=== PATIENT | male | born 1980 | race Caucasian/White ===

== ENCOUNTER 2018-11-09 16:39 | Inpatient (IN) | payer BC ==
[2018-11-10 00:19] VITALS: BMI 24.3
--- NOTE | 2018-11-10 03:08 | HP ---
CIWA Score Nausea/Vomitin-Mild Nausea/No Vomiting Muscle Tremors: 4-Moderate,w/Arms Extend Anxiety: 3 Agitation: 4-Moderately Restless Paroxysmal Sweats: 1-Minimal Palms Moist Orientation: 0-Oriented Tacttile Disturbances: 0-None Auditory Disturbances: 0-None Visual Disturbances: 0-None Headache: 4-Moderately Severe CIWA-Ar Total Score: 17 - Admission Criteria OAS Guidelines: Admission for Medically Managed Detox: Requires at least one of the followin. CIWA greater than 12 2. Seizures within the past 24 hours 3. Delirium tremens within the past 24 hours 4. Hallucinations within the past 24 hours 5. Acute intervention needed for co occurring medical disorder 6. Acute intervention needed for co occurring psychiatric disorder 7. Severe withdrawal that cannot be handled at a lower level of care (continued vomiting, continued diarrhea, abnormal vital signs) requiring intravenous medication and/or fluids 8. Admission [facility] Chief Complaint: Alcohol withdrawal symptoms, on Methadone Therapy Allergies/Adverse Reactions: Allergies Allergy/AdvReac Type Severity Reaction Status Date / Time No Known Allergies Allergy Verified 11/10/18 00:21 History of Present Illness: 38 years old male with a long history of alcohol dependence is seeking admission to detox. Patient has been in previous detox and reports insignificant period of sobriety. He denies any past medical history and suicidal ideation at this time. Patient is on Methadone 60mg tablet at [facility]. Last day medicated was 11/10/2018. Dose is yet to be verified by the nurse. This is his first admission to [facility] Exam Limitations: No Limitations - Ebola screening Have you traveled outside of the country in the last 21 days: No (N) Have you had contact with anyone from an Ebola affected area: No Do you have a fever: No - Review of Systems Constitutional: Chills, Loss of Appetite, Malaise, Night Sweats, Changes in sleep EENT: reports: No Symptoms Reported, Sinus Pressure Respiratory: reports: No Symptoms reported Cardiac: reports: No Symptoms Reported GI: reports: No Symptoms Reported, Diarrhea (x 2), Poor Appetite, Poor Fluid Intake : reports: No Symptoms Reported Integumentary: reports: Dryness, Flushing Neuro: reports: Tremors Endocrine: reports: No Symptoms Reported Hematology: reports: No Symptoms Reported Psychiatric: reports: Anxious, Depressed Other Systems: Reviewed and Negative Patient History - Patient Medical History Hx Anemia: No Hx Asthma: No Hx Chronic Obstructive Pulmonary Disease (COPD): No Hx Cancer: No Hx Cardiac Disorders: No Hx Congestive Heart Failure: No Hx Hypertension: No Hx Hypercholesterolemia: No Hx Pacemaker: No Hx Seizures: No Hx Diabetes: No Hx Gastrointestinal Disorders: No Hx Liver Disease: No Hx Genitourinary Disorders: No Hx Sexually Transmitted Disorders: No Hx Renal Disease (ESRD): No Hx Thyroid Disease: No Hx Human Immunodeficiency Virus (HIV): No Hx Hepatitis C: No Hx Depression: No Hx Suicide Attempt: No (Denies suicidal ideaation at this time) Hx Bipolar Disorder: No Hx Schizophrenia: No - Patient Surgical History Past Surgical History: No Hx Neurologic Surgery: No Hx Cataract Extraction: No Hx Cardiac Surgery: No Hx Lung Surgery: No Hx Breast Surgery: No Hx Breast Biopsy: No Hx Abdominal Surgery: No Hx Appendectomy: No Hx Cholecystectomy: No Hx Genitourinary Surgery: No Hx Section: No Hx Orthopedic Surgery: No Hx Hysterectomy: No Anesthesia Reaction: No - PPD History Previous Implant?: Yes Documented Results: Negative w/proof Implanted On Prior R Admission?: Yes PPD to be Administered?: Yes - Reproductive History Patient is a Female of Child Bearing Age (11 -55 yrs old): No (male) - Smoking Cessation Smoking history: Current every day smoker Have you smoked in the past 12 months: Yes Aproximately how many cigarettes per day: 10 Hx Chewing Tobacco Use: No Initiated information on smoking cessation: Yes 'Breaking Loose' booklet given: 11/10/18 - Substance & Tx. History Hx Alcohol Use: Yes Hx Substance Use: Yes Substance Use Type: Alcohol, Cocaine - Substances abused Cocaine Substance route: Inhalation Frequency: 1-2 times per week Amount used: $50- $100 Age of first use: 17 Date of last use: 11/07/18 Heroin Substance route: Inhalation Frequency: Daily Amount used: 2-3 bags Age of first use: 17 Date of last use: 09/08/18 Alcohol Substance route: Oral Frequency: Daily Amount used: 2-3 24 oz can Age of first use: 13 Date of last use: 11/10/18 Family Disease History - Family Disease History Family History: Denies Admission Physical Exam BHS - Vital Signs Vital Signs: Vital Signs - 24 hr 11/10/18 00:05 Temperature 97.6 F Pulse Rate 68 Respiratory 18 Rate Blood Pressure 124/81 - Physical General Appearance: Yes: Moderate Distress, Tremorous, Sweating, Anxious HEENTM: Yes: EOMI, Normal ENT Inspection, Normal Voice, HEBERT Respiratory: Yes: Lungs Clear, Normal Breath Sounds, No Respiratory Distress Neck: Yes: Supple Breast: Yes: Breast Exam Deferred Cardiology: Yes: Regular Rhythm, Regular Rate Abdominal: Yes: Normal Bowel Sounds Genitourinary: Yes: Within Normal Limits Back: Yes: Normal Inspection Musculoskeletal: Yes: Within Normal Limits Extremities: Yes: Tremors Neurological: Yes: Normal Mood/Affect Integumentary: Yes: Warm Lymphatic: Yes: Within Normal Limits - Diagnostic (1) Cannabis dependence with withdrawal Current Visit: Yes Status: Chronic (2) Alcohol dependence with uncomplicated withdrawal Current Visit: Yes Status: Chronic (3) Methadone maintenance therapy patient Current Visit: Yes Status: Acute Cleared for Admission S - Detox or Rehab [facility] Level of Care: Medically Managed Detox Regimen/Protocol: Librium Breathalyzer - Breathalyzer Breathalyzer: 0 Vital Signs - Vital Signs Vital signs refused: No Temperature: 97.6 F Pulse Rate: 73 Respiratory Rate: 18 Blood Pressure: 120/76 BP Location: Left Arm - Height Height: 5 ft 9 in - Weight Weight measurement method: Standing scale - Bowel Function Bowel Movement: No Urine Drug Screen - Test Device Lot number: [id number] Expiration date: 07/22/20 - Control Is test valid?: Yes - Results Drug screen NEGATIVE: No Urine drug screen results: AIDEE-Cocaine, MTD-Methadone Inpatient Rehab Admission - Rehab Decision to Admit Inpatient rehab admission?: No
[2018-11-10] MEDS ORDERED: NICOTINE POLACRILEX 2 MG GUM BUC PRN (03:30)
[2018-11-10] MEDS ORDERED: chlordiazePOXIDE HCL 25 MG CAPSULE PO PRN (03:30)
[2018-11-10] MEDS ORDERED: MAGNESIUM HYDROX 2400MG/30ML ORAL SUSPENSION 30 ML CUP PO PRN (03:30)
[2018-11-10] MEDS ORDERED: MAGNESIUM CITRATE 300 ML BOTTLE PO PRN (03:30)
[2018-11-10] MEDS ORDERED: METHOCARBAMOL 500 MG TABLET PO PRN (03:30)
[2018-11-10] MEDS ORDERED: BISMUTH SUBSALICYLATE 524 MG/30 ML UD PO PRN (03:30)
[2018-11-10] MEDS ORDERED: hydrOXYzine PAMOATE 25 MG CAPSULE (FP) PO PRN (03:30)
[2018-11-10] MEDS ORDERED: MENTHOL/PHENOL 1 EACH UD MM PRN (03:30)
[2018-11-10] MEDS ORDERED: MAG HYDROX/AL HYDROX/SIMETH 30 ML UNIT-DOSE CUP PO PRN (03:30)
[2018-11-10] MEDS ORDERED: ACETAMINOPHEN 325 MG TABLET (FP) PO PRN ×2 (03:30)
[2018-11-10] MEDS ORDERED: IBUPROFEN 400 MG TABLET (FP) PO PRN (03:30)
[2018-11-10] MEDS: chlordiazePOXIDE HCL 25 MG CAPSULE PO SCH ×3 (04:36→17:12)
[2018-11-10] MEDS ORDERED: METHADONE HCL 10 MG TABLET PO ONE (09:28)
[2018-11-10] MEDS ORDERED: METHADONE 40 MG, METHADONE 10 MG PO ONE (09:40)
[2018-11-10] MEDS ORDERED: METHADONE HCL 10 MG TABLET ONE (10:08)
[2018-11-10] MEDS ORDERED: METHADONE HCL 40 MG DISPERSABLE TABLET ONE (10:08)
[2018-11-10] MEDS: PRENATAL VITAMINS W/ FOLIC ACID TABLET (FP) PO SCH (10:17)
[2018-11-10] MEDS: NICOTINE 14 MG/24 HOURS TOPICAL PATCH TD SCH (10:17)
--- NOTE | 2018-11-10 11:51 | PN ---
S CIWA - CIWA Score Nausea/Vomitin-No Nausea/No Vomiting Muscle Tremors: 4-Moderate,w/Arms Extend Anxiety: 2 Agitation: 1-Slight > Activity Paroxysmal Sweats: 2 Orientation: 0-Oriented Tacttile Disturbances: 0-None Auditory Disturbances: 0-None Visual Disturbances: 0-None Headache: 0-None Present CIWA-Ar Total Score: 9 BHS Progress Note (SOAP) Subjective: sweats mild shakes i feel much better i need to leave by thursday. I have a very important place to be. Objective: 11/10/18 11:50 Vital Signs Temperature 98.1 F 11/10/18 08:19 Pulse Rate 56 L 11/10/18 08:19 Respiratory Rate 18 11/10/18 08:19 Blood Pressure 122/77 11/10/18 08:19 O2 Sat by Pulse Oximetry (%) labs pending aaox3 ambulating no acute distress Assessment: 11/10/18 11:50 mild withdrawal sx Plan: discussed with pt for a reduced librium regimen and a d/c for thursday. Pt in agreement. increase fluids pending labs
--- NOTE | 2018-11-10 15:42 | EKG ---
Test Reason : Blood Pressure : / mmHG Vent. Rate : 058 BPM Atrial Rate : 058 BPM P-R Int : 140 ms QRS Dur : 098 ms QT Int : 442 ms P-R-T Axes : 012 045 046 degrees QTc Int : 433 ms SINUS BRADYCARDIA OTHERWISE NORMAL ECG NO PREVIOUS ECGS AVAILABLE Confirmed by JOVANI HOLLAND, CAROLYN ([id number]) on 11/10/2018 3:42:25 PM Referred By: Confirmed By:CAROLYN HAHN MD
[2018-11-10] MEDS: MELATONIN 5 MG TABLETS PO PRN (22:01)
[2018-11-10] MEDS: THIAMINE HCL 100 MG TABLET (FP) PO SCH (22:01)
[2018-11-11] MEDS ORDERED: METHADONE HCL 40 MG DISPERSABLE TABLET ONE (04:49)
[2018-11-11] MEDS ORDERED: METHADONE HCL 10 MG TABLET ONE (04:49)
[2018-11-11] MEDS ORDERED: METHADONE HCL 40 MG DISPERSABLE TABLET PO SCH (06:00)
[2018-11-11] MEDS: METHADONE 40 MG, METHADONE 10 MG PO SCH (06:25)
[2018-11-11] MEDS: chlordiazePOXIDE HCL 25 MG CAPSULE PO SCH ×3 (06:25→18:11)
[2018-11-11 09:40] LABS: HEMATOCRIT 39.7 % (35.4-49); HEMOGLOBIN 13.2 GM/dL (11.7-16.9); MCH 30.3 pg (25.7-33.7); MCHC 33.3 g/dl (32.0-35.9); MEAN CELL VOLUME 90.8 fl (80-96); MEAN PLT VOLUME 7.7 fl (7.5-11.1); PLATELET COUNT 225 K/MM3 (134-434); RBC 4.38 M/mm3 (4.00-5.60); RDW 12.9 % (11.9-15.9)
[2018-11-11 10:00] LABS: BILIRUBIN,TOTAL 0.8 mg/dL (0.2-1); BLOOD UREA NITROGEN 9.6 mg/dL (7-18); CALCIUM 9.4 mg/dL (8.5-10.1); CREATININE 0.8 mg/dL (0.55-1.3); TOT PROT 7.2 g/dl (6.4-8.2)
[2018-11-11] MEDS: PRENATAL VITAMINS W/ FOLIC ACID TABLET (FP) PO SCH (10:04)
[2018-11-11] MEDS: NICOTINE 14 MG/24 HOURS TOPICAL PATCH TD SCH (10:04)
--- NOTE | 2018-11-11 11:18 | PN ---
S CIWA - CIWA Score Nausea/Vomitin-No Nausea/No Vomiting Muscle Tremors: 1-None Visible, but Bliss Anxiety: 1-Mildly Anxious Agitation: 1-Slight > Activity Paroxysmal Sweats: 1-Minimal Palms Moist Orientation: 0-Oriented Tacttile Disturbances: 0-None Auditory Disturbances: 0-None Visual Disturbances: 0-None Headache: 0-None Present CIWA-Ar Total Score: 4 BHS Progress Note (SOAP) Subjective: anxiety Objective: 11/11/18 11:17 Vital Signs Temperature 98.2 F 11/11/18 09:30 Pulse Rate 107 H 11/11/18 09:30 Respiratory Rate 18 11/11/18 09:30 Blood Pressure 136/82 11/11/18 09:30 O2 Sat by Pulse Oximetry (%) Laboratory Tests 11/11/18 11/11/18 07:30 07:30 WBC 7.0 RBC 4.38 Hgb 13.2 Hct 39.7 MCV 90.8 MCH 30.3 MCHC 33.3 RDW 12.9 Plt Count 225 MPV 7.7 Sodium 138 Potassium 4.0 Chloride 103 Carbon Dioxide 30 Anion Gap 5 L BUN 9.6 Creatinine 0.8 Est GFR (CKD-EPI)AfAm 130.42 Est GFR (CKD-EPI)NonAf 112.53 Random Glucose 67 L Calcium 9.4 Total Bilirubin 0.8 AST 21 ALT 64 H Alkaline Phosphatase 149 H Total Protein 7.2 Albumin 4.0 labs noted aaox3 ambulating no acute distress Assessment: 11/11/18 11:18 mild withdrawal sx Plan: continue with detox increase fluids d/c at 7am as per pt request
[2018-11-11 21:43] VITALS: TEMP 97.7
[2018-11-11] MEDS: MELATONIN 5 MG TABLETS PO PRN (22:03)
[2018-11-11] MEDS: THIAMINE HCL 100 MG TABLET (FP) PO SCH (22:04)
[2018-11-12] MEDS ORDERED: METHADONE HCL 40 MG DISPERSABLE TABLET ONE (04:35)
[2018-11-12] MEDS ORDERED: METHADONE HCL 10 MG TABLET ONE (04:35)
[2018-11-12] MEDS ORDERED: chlordiazePOXIDE HCL 10 MG CAPSULE PO PRN (05:00)
[2018-11-12] MEDS ORDERED: chlordiazePOXIDE HCL 10 MG CAPSULE PO SCH (05:00)
[2018-11-12] MEDS: METHADONE 40 MG, METHADONE 10 MG PO SCH (05:24)
[2018-11-12 06:50] VITALS: BP 121/75; PULSE 64
--- NOTE | 2018-11-12 11:03 | DS ---
[facility] Detox Discharge Summary Admission Date: 11/10/18 Discharge Date: 11/12/18 - History Present History: Alcohol Dependence, Cannabis Dependence, MMTP - Physical Exam Results Vital Signs: Vital Signs Temperature 97.7 F 11/12/18 06:00 Pulse Rate 64 11/12/18 06:00 Respiratory Rate 18 11/12/18 06:00 Blood Pressure 121/75 11/12/18 06:00 O2 Sat by Pulse Oximetry (%) - Treatment Hospital Course: Detox Protocol Followed, Detoxed Safely, Responded well, Discharged Condition Good, Rehab Referral Accepted - Medication Discharge Medications: Ambulatory Orders Methadone [Dolophine -] 60 mg PO DAILY 11/10/18 - Diagnosis (1) Methadone maintenance therapy patient Status: Chronic (2) Alcohol dependence with uncomplicated withdrawal Status: Chronic (3) Cannabis dependence with withdrawal Status: Chronic - AMA Did Patient Leave Against Medical Advice: No (going back to his mmtp )
[2018-11-13] MEDS ORDERED: chlordiazePOXIDE HCL 10 MG CAPSULE PO SCH (05:00)
== END 2018-11-12 07:20 | disposition home or self-care (01) | DRG 773 ==
LOC: YASAS 16:39 → Y6N 11-10 03:18
PROVIDERS: ADMIT Surgery; ATTEND Surgery
PROC: HZ2ZZZZ Detoxification Services for Substance Abuse Treatment (ICD-10-PCS; principal; 2018-11-10)
DX: F10.230 Alcohol dependence with withdrawal, uncomplicated (principal); F11.20 Opioid dependence, uncomplicated; F14.20 Cocaine dependence, uncomplicated; F12.20 Cannabis dependence, uncomplicated
CPT/HCPCS: 36415; 80053; 85027; 86593; 93005; 93010